=== PATIENT | female | born 1955 | race Caucasian/White ===

== ENCOUNTER → 2016-08-19 | Outpatient (CLI) | payer MEDICARE, MEDICAID | LOC: WI 07:54 | PROVIDERS: ATTEND Nurse Practitioner | DX: Z12.31 Encounter for screening mammogram for malignant neoplasm of breast (principal); M85.88 Other specified disorders of bone density and structure, other site | CPT/HCPCS: 77080; G0202; 77067 ==

== ENCOUNTER 2016-09-19 12:51 | Emergency (ER) | payer MEDICARE, MEDICAID ==
[2016-09-19] MEDS ORDERED: ACETAMINOPHEN 325 MG TABLET PO ONE (13:33)
--- NOTE | 2016-09-19 13:33 | ER Document Report ---
ED Medical Screen (RME) - General Stated Complaint: HEAD INJURY Time seen by provider: 13:29 Mode of Arrival: Ambulatory Information source: Patient Notes: 60-year-old female presents to ED for 2 knots on her head she states a roller cart fell on her head on Friday. She says she was dazed for a little bit they put ice on her head. She states that happened and Tricia Aguirre they did not send her to the hospital at the time. Timothy's support told her she needed to come to the emergency room. States she's had a headache since that happened. Denies nausea and vomiting. I have greeted and performed a rapid initial assessment of this patient. A comprehensive ED assessment and evaluation of the patient, analysis of test results and completion of medical decision making process will be conducted by an additional ED providers. TRAVEL OUTSIDE OF THE [place] IN LAST 30 DAYS: No - Related Data Allergies/Adverse Reactions: No Known Allergies Allergy (Verified 09/19/16 13:29) Past Medical History - Past Medical History Cardiac Medical History: Reports: Hx Coronary Artery Disease, Hx Hypercholesterolemia, Hx Hypertension Pulmonary Medical History: Reports: Hx Asthma, Hx Bronchitis, Hx COPD Endocrine Medical History: Reports: Hx Diabetes Mellitus Type 2 - insulin dep. Renal/ Medical History: Reports: Hx Ovarian Cysts GI Medical History: Reports: Hx Colonoscopy - Polyps removed with the last colonoscopy Musculoskeltal Medical History: Reports Hx Musculoskeletal Deformity - Osteopenia, Reports Hx Musculoskeletal Trauma Psychiatric Medical History: Reports: Hx Depression Past Surgical History: Reports: Hx Cardiac Catheterization, Hx Cardiac Surgery - stent placed 2012, Hx Coronary Stent, Hx Gynecologic Surgery - ovary and cyst removal, Hx Orthopedic Surgery - right wrist-carpal tunnel, right knee - Immunizations Hx Diphtheria, Pertussis, Tetanus Vaccination: Yes Physical Exam - Vital signs Vitals: Temp Pulse Resp BP Pulse Ox 98.2 F 79 16 126/66 H 96 09/19/16 13:00 09/19/16 13:00 09/19/16 13:00 09/19/16 13:00 09/19/16 13:00 Course - Vital Signs Vital signs: Temp Pulse Resp BP Pulse Ox 98.2 F 79 16 126/66 H 96 09/19/16 13:00 09/19/16 13:00 09/19/16 13:00 09/19/16 13:00 09/19/16 13:00
--- NOTE | 2016-09-19 14:57 | ER Document Report ---
ED General - General Chief Complaint: Head Injury Stated Complaint: HEAD INJURY Time seen by provider: 14:40 Mode of Arrival: Ambulatory Information source: Patient Notes: 60-year-old female with one-week history of cough that initially was productive but she says that got better with Mucinex. She continues however to have a nonproductive cough which sometimes becomes paroxysmal. She reports that she has had a flu shot already and saw her primary care physician Dr. Wright for this last week and had a flu test that was negative but she says other than an inhaler she did not get any other medicines for it. Patient also says that 2 days ago a roller cart fell on the right side of her head. She states the part that hit her was at about the height of her head at the time it fell and she could not provide any description about the wait involved. She says she was momentarily dazed but did not lose consciousness. She reports she had some nausea that night and some further nausea last night but doesn't feel any of that now. She complains about continued pain to the right parietal scalp and thinks she has 2 kn there but denies any vomiting, visual disturbances, pain numbness weakness to extremities, or syncope. Physical Exam: General: Alert, appears well. HEENT: Normocephalic. Palpation of the scalp shows some tenderness to the right parietal area but no ecchymosis swelling or bony defects are palpated. PERRLA. Extraocular movements intact. Discs sharp no papilledema sclerae anicteric tympanic members are canals clear otorhinorrhea Oropharynx clear. Normal Neck: Supple. Non-tender. Joints without discomfort Respiratory: No respiratory distress. Clear and equal breath sounds bilaterally. Cardiovascular: Regular rate and rhythm. Abdominal: Normal Inspection. Soft, non-tender. No distension. Normal Bowel Sounds. Back: Non-tender. No deformity or step off. Heart shows with good range of motion no discomfort to plus pulses no Homans sign bilaterally Neurological: Cranial nerves III-XII grossly intact bilaterally. Strength 5/5 throughout. Sensation intact to light touch. Normal cognition. AAOx4. Normal speech. Cerebellar function intact by finger to nose test bilaterally Psychological: Normal affect. Normal Mood. Skin: Warm. Dry. Normal color. TRAVEL OUTSIDE OF THE [place] IN LAST 30 DAYS: No - Related Data Allergies/Adverse Reactions: No Known Allergies Allergy (Verified 09/19/16 13:29) Past Medical History - General Information source: Patient - Social History Smoking Status: Current Some Day Smoker Chew tobacco use (# tins/day): No Frequency of alcohol use: None Drug Abuse: None Family History: Arthritis - RA, DM, Hyperlipidemia, Hypertension, Malignancy Patient has suicidal ideation: No Patient has homicidal ideation: No - Past Medical History Cardiac Medical History: Reports: Hx Coronary Artery Disease, Hx Hypercholesterolemia, Hx Hypertension Pulmonary Medical History: Reports: Hx Asthma, Hx Bronchitis, Hx COPD Endocrine Medical History: Reports: Hx Diabetes Mellitus Type 2 - insulin dep. Renal/ Medical History: Reports: Hx Ovarian Cysts. Denies: Hx Peritoneal Dialysis GI Medical History: Reports: Hx Colonoscopy - Polyps removed with the last colonoscopy Musculoskeltal Medical History: Reports Hx Musculoskeletal Deformity - Osteopenia, Reports Hx Musculoskeletal Trauma Psychiatric Medical History: Reports: Hx Depression Past Surgical History: Reports: Hx Cardiac Catheterization, Hx Cardiac Surgery - stent placed 2012, Hx Coronary Stent, Hx Gynecologic Surgery - ovary and cyst removal, Hx Orthopedic Surgery - right wrist-carpal tunnel, right knee - Immunizations Hx Diphtheria, Pertussis, Tetanus Vaccination: No Review of Systems - Review of Systems Constitutional: denies: Chills, Diaphoresis, Fever EENT: denies: Ear pain, Throat pain Cardiovascular: denies: Chest pain, Dyspnea Respiratory: See HPI Gastrointestinal: denies: Abdominal pain, Diarrhea Genitourinary: denies: Burning, Dysuria Female Genitourinary: denies: Musculoskeletal: denies: Back pain, Leg swelling Skin: denies: Rash Hematologic/Lymphatic: denies: Swollen glands Neurological/Psychological: denies: Weakness, Numbness Physical Exam - Vital signs Vitals: Temp Pulse Resp BP Pulse Ox 98.2 F 79 16 126/66 H 96 09/19/16 13:00 09/19/16 13:00 09/19/16 13:00 09/19/16 13:00 09/19/16 13:00 Course - Re-evaluation Re-evalutation: 09/19/16 15:00 #1 mild closed head injury. Patient does not require imaging for this and she is neurologically intact. She is reporting no nausea now. Suspect her headache is made worse with coughing and she is counseled to use symptomatic treatment with Tylenol or Motrin for that #2 cough. Lung lindsey are clear. She reports symptoms diagnosed as like this is bronchitis last year to get better with steroids and we'll prescribe a Tessalon Perle and a Medrol Dosepak follow with her primary care physician next week - Vital Signs Vital signs: Temp Pulse Resp BP Pulse Ox 98.2 F 79 16 126/66 H 96 09/19/16 13:00 09/19/16 13:00 09/19/16 13:00 09/19/16 13:00 09/19/16 13:00 Discharge - Discharge Clinical Impression: Viral syndrome Closed head injury Qualifiers: Encounter type: initial encounter Qualified Code(s): S09.90XA - Unspecified injury of head, initial encounter Condition: Stable Disposition: HOME, SELF-CARE Additional Instructions: Viral Syndrome The physician has diagnosed a viral infection. Viruses not only cause "colds," but can cause many different symptoms including generalized aching, fever, headache, cough, diarrhea, nausea, vomiting, and fatigue. The treatment, for the most part, is simply relief of symptoms. This means that antibiotics are usually not given. Rest, fluids, pain medications and, occasionally, medication for the specific symptoms that are most bothersome will be prescribed. Use good handwashing to avoid passing the virus to others. Shared toys should be cleaned with disinfectant. Clean the toilets, sinks, and counter surfaces in bathrooms. Launder clothing in hot water. Contact the physician if you develop any new or unusual symptoms such as severe headache, stiff neck, high fever, chest pain, productive cough, or shortness of breath. You should be rechecked if you don't see marked improvement within seven to 10 days. See your doctor next week to be rechecked Prescriptions: Benzonatate [Tessalon Perles 100 mg Capsule] 100 mg PO Q8HP PRN #30 capsule PRN Reason: Cough Methylprednisolone [Medrol Dosepack (4 mg/Tab) 21 Tab/Dosepak] 4 mg PO ASDIR PRN #21 tab.ds.pk PRN Reason:
[2016-09-19 15:18] VITALS: BP 141/77
== END 2016-09-19 15:17 | disposition home or self-care (01) ==
LOC: ER 12:51
DX: S09.90XA Unspecified injury of head, initial encounter (principal); R05 Cough; F17.210 Nicotine dependence, cigarettes, uncomplicated; B34.9 Viral infection, unspecified; X58.XXXA Exposure to other specified factors, initial encounter
CPT/HCPCS: 99283; A9270

== ENCOUNTER → 2016-11-07 | Outpatient (CLI) | payer MEDICARE, MEDICAID | LOC: SP 08:39 | PROVIDERS: ATTEND Family Medicine | DX: R09.89 Other specified symptoms and signs involving the circulatory and respiratory systems (principal) | CPT/HCPCS: 93880 ==

== ENCOUNTER → 2016-11-07 | Outpatient (CLI) | payer MEDICARE, MEDICAID ==
[2016-11-07 08:46] LABS: CHOLESTEROL 192.64 mg/dL (0-200); Direct HDL 79 mg/dL (>40); TRIGLYCERIDES 61 mg/dL (<150)
[2016-11-07 08:59] LABS: DIRECT LDL 84 mg/dL (<100)
== END ==
LOC: OD 07:09
PROVIDERS: ATTEND Family Medicine
DX: E11.9 Type 2 diabetes mellitus without complications (principal); R09.89 Other specified symptoms and signs involving the circulatory and respiratory systems; Z79.4 Long term (current) use of insulin
CPT/HCPCS: 36415; 80061; 83036

== ENCOUNTER 2016-12-19 07:03 | Emergency (ER) | payer MEDICARE, MEDICAID ==
[2016-12-19 07:12] VITALS: BP 110/60
--- NOTE | 2016-12-19 07:44 | ER Document Report ---
ED Wound - General Mode of Arrival: Ambulatory Information source: Patient TRAVEL OUTSIDE OF THE [place] IN LAST 30 DAYS: No - HPI Patient complains to provider of: Laceration Occurred: Just prior to arrival Onset/Duration: Sudden Context: Other - Shaving - General Chief Complaint: Laceration Stated Complaint: LEG PAIN Time Seen by Provider: 12/19/16 07:25 Notes: Patient is a 61-year-old female presenting to the emergency department after cutting her leg while shaving this morning before work. Patient states that she was "sitting in a pool of blood" and "my whole bathroom was squirted." Patient states that she put pressure on the wound with several washcloths, but it would not stop bleeding. Patient finally decided to come into the emergency department. Reports pain taking baby aspirin daily. (KATIA FRENCH) - Related Data Allergies/Adverse Reactions: No Known Allergies Allergy (Verified 09/19/16 13:29) Past Medical History - General Information source: Patient, [facility] Records - Social History Smoking Status: Current Every Day Smoker Chew tobacco use (# tins/day): No Frequency of alcohol use: None Drug Abuse: None Family History: Arthritis, DM, Hyperlipidemia, Hypertension, Malignancy Patient has suicidal ideation: No Patient has homicidal ideation: No - Past Medical History Cardiac Medical History: Reports: Hx Coronary Artery Disease, Hx Hypercholesterolemia, Hx Hypertension Pulmonary Medical History: Reports: Hx Asthma, Hx Bronchitis, Hx COPD Endocrine Medical History: Reports: Hx Diabetes Mellitus Type 2 - insulin dep. Renal/ Medical History: Reports: Hx Ovarian Cysts GI Medical History: Reports: Hx Colonoscopy - Polyps removed with the last colonoscopy Musculoskeltal Medical History: Reports Hx Musculoskeletal Deformity - Osteopenia, Reports Hx Musculoskeletal Trauma Psychiatric Medical History: Reports: Hx Depression Past Surgical History: Reports: Hx Cardiac Catheterization, Hx Cardiac Surgery - stent placed 2012, Hx Coronary Stent, Hx Gynecologic Surgery - ovary and cyst removal, Hx Orthopedic Surgery - right wrist-carpal tunnel, right knee - Immunizations Hx Diphtheria, Pertussis, Tetanus Vaccination: No Review of Systems - Review of Systems Constitutional: No symptoms reported EENT: No symptoms reported Cardiovascular: No symptoms reported Respiratory: No symptoms reported Gastrointestinal: No symptoms reported Genitourinary: No symptoms reported Female Genitourinary: No symptoms reported Musculoskeletal: No symptoms reported Skin: See HPI, Other - right leg laceration Hematologic/Lymphatic: No symptoms reported Neurological/Psychological: No symptoms reported -: Yes All other systems reviewed and negative Physical Exam - Vital signs Interpretation: Normal - General General appearance: Appears well, Alert - HEENT Head: Normocephalic, Atraumatic Eyes: Normal Pupils: PERRL - Respiratory Respiratory status: No respiratory distress Chest status: Nontender Breath sounds: Normal Chest palpation: Normal - Cardiovascular Rhythm: Regular Heart sounds: Normal auscultation Murmur: No - Abdominal Inspection: Normal Distension: No distension Bowel sounds: Normal Tenderness: Nontender Organomegaly: No organomegaly - Back Back: Normal, Nontender - Extremities General upper extremity: Normal inspection, Nontender Calf: Laceration - 2 pinpoint errosions over vericosities at the right posterior aspect mid leg, that were not bleeding at this point., Other - Vericosities, no edema. - Neurological Neuro grossly intact: Yes Cognition: Normal Orientation: AAOx4 Marco Coma Scale Eye Opening: Spontaneous [place] Coma Scale Verbal: Oriented Marco Coma Scale Motor: Obeys Commands [place] Coma Scale Total: 15 Speech: Normal - Psychological Associated symptoms: Normal affect, Normal mood - Skin Skin Temperature: Warm Skin Moisture: Dry Skin Color: Normal - Vital signs Vitals: Temp Pulse Resp BP Pulse Ox 98.2 F 69 16 110/60 94 12/19/16 07:09 12/19/16 07:09 12/19/16 07:09 12/19/16 07:09 12/19/16 07:09 Discharge - Discharge Clinical Impression: Bleeding from varicose veins of right lower extremity Additional Instructions: Change the dressing later this morning. Use Neosporin or bacitracin ointment, a very small dab over the affected area. Then place the 2X2 gauze pads over the area. Then put the Gregory wrap on. Keep your leg elevated today and limit walking. Release the Gregory wrap pressure every few hours. Be sure to keep firm pressure on the involved area anytime you are up walking. RETURN TO THE EMERGENCY ROOM IF ANY NEW OR WORSENING SYMPTOMS. Forms: Return to Work Scribe Attestation: 12/19/16 07:50 I personally performed the services described in the documentation, reviewed and edited the documentation which was dictated to the scribe in my presence, and it accurately records my words and actions. (KIRK PANDYA) Scribe Documentation - Scribe Written by Scribe:: Jono Quezada, 12/19/2016 0813 acting as scribe for :: Christian
== END 2016-12-19 07:54 | disposition home or self-care (01) ==
LOC: ER 07:03
DX: S81.811A Laceration without foreign body, right lower leg, initial encounter (principal); W45.8XXA Other foreign body or object entering through skin, initial encounter; Y93.E8 Activity, other personal hygiene; I83.91 Asymptomatic varicose veins of right lower extremity; Z79.82 Long term (current) use of aspirin; E11.9 Type 2 diabetes mellitus without complications; I25.10 Atherosclerotic heart disease of native coronary artery without angina pectoris; I10 Essential (primary) hypertension; J44.9 Chronic obstructive pulmonary disease, unspecified; Z98.61 Coronary angioplasty status; F17.200 Nicotine dependence, unspecified, uncomplicated
CPT/HCPCS: 99282

== ENCOUNTER → 2017-10-22 | Outpatient (CLI) | payer MEDICARE, MEDICAID ==
--- NOTE | 2017-10-23 16:32 | WOMENS IMAGING REPORT ---
EXAM DESCRIPTION: 3D SCREENING MAMMO BILAT COMPLETED DATE/TIME: 10/22/2017 1:57 pm REASON FOR STUDY: ROUTINE SCREENING;Z12.31 Z12.31 ENCNTR SCREEN MAMMOGRAM FOR MALIGNANT NEOPLASM OF ABRAHAM COMPARISON: 2017 TECHNIQUE: Standard craniocaudal and mediolateral oblique views of each breast recorded using digita l acquisition and breast tomosynthesis. LIMITATIONS: None. FINDINGS: No masses, calcifications or architectural distortion. No areas of suspicion. Read with the assistance of CAD. .[facility] - R2 Cenova Version 1.3 .[facility] Imaging - R2 Cenova Version 1.3 .[facility] Imaging - R2 Cenova Version 2.4 .[facility] [place] [facility] - R2 Cenova Version 2.4 .[facility] - R2 Ultrasonic Tester Version 9.2 IMPRESSION: NORMAL MAMMOGRAM. BIRADS 1. BREAST DENSITY: b. There are scattered areas of fibroglandular density. BIRAD: 1 NEGATIVE RECOMMENDATION: ROUTINE SCREENING COMMENT: The patient has been notified of the results by letter per SA requirements. Additional no tification policies are in place for contacting patient with suspicious or incomplete findings. Quality ID #225: The [employer] recommends an annual screening mammogram for women aged 40 years or over. This facility utilizes a reminder system to ensure that all patients receive reminder letters, and/or direct phone calls for appointments. This includes reminders for routine scr eening mammograms, diagnostic mammograms, or other Breast Imaging Interventions when appropriate. Th is patient will be placed in the appropriate reminder system. The [employer] (ACR) has developed recommendations for screening MRI of the breast s in certain patient populations, to be used in conjunction with mammography. Breast MRI surveillanc e may be appropriate for women with more than 20% lifetime risk of developing breast cancer as deter mined by genetic testing, significant family history of the disease, or history of mantle radiation f or Hodgkins Disease. ACR Practice Guidelines 2008. DBT Technology DBT is a type of tomographic mammography. With conventional mammography, overlapping breast tissue ma y make lesions difficult to detect, even with good compression. DBT uses an x-ray tube that rotates a round the breast, taking images at different angles. These images are then combined to create thin sl ices of the breast that the radiologist can view as a 3D reconstruction. The [facility] unit can perform full-field digital mammograms (2D imaging); or DBT (3D imaging); or both, in a combination mode that quickly performs both the mammogram and the tomosynthesis scan while the breast is still compressed. PQRS 6045F: Fluoroscopic imaging is not utilized for breast tomosynthesis. TECHNICAL DOCUMENTATION: FINDING NUMBER: (1) ASSESSMENT: (1) JOB ID: [id number] [employer]- All Rights Reserved Reading location - IP/workstation name: [email or web address]
== END ==
LOC: WI 12:58
PROVIDERS: ATTEND Nurse Practitioner
DX: Z12.31 Encounter for screening mammogram for malignant neoplasm of breast (principal)
CPT/HCPCS: 77063; 77067

== ENCOUNTER → 2017-10-24 | Outpatient (CLI) | payer MEDICARE, MEDICAID ==
[2017-10-24 08:45] LABS: HEMATOCRIT 45.4 % (36.0-47.0); HEMOGLOBIN 15.3 g/dL (12.0-15.5); MEAN CORPUSCULAR HEMOGLOBIN 30.7 pg (27.0-33.4); MEAN CORPUSCULAR HGB CONC 33.8 g/dL (32.0-36.0); MEAN CORPUSCULAR VOLUME 91 fl (80-97); PLATELET COUNT 165 10^3/uL (150-450); RED CELL DISTRIBUTION WIDTH 13.2 % (11.5-14.0); WHITE BLOOD COUNT 6.3 10^3/uL (4.0-10.5)
[2017-10-24 09:13] LABS: ALANINE AMINOTRANSFERASE 36 U/L (9-52); ALBUMIN 4.2 g/dL (3.5-5.0); ALKALINE PHOSPHATASE 95 U/L (38-126); ANION GAP 8 (5-19); ASPARTATE AMINO TRANSFERASE 21 U/L (14-36); BILIRUBIN,DIRECT 0.3 mg/dL (0.0-0.4); BILIRUBIN,TOTAL 0.5 mg/dL (0.2-1.3); BLOOD UREA NITROGEN 18 mg/dL (7-20); CALCIUM 9.4 mg/dL (8.4-10.2); CARBON DIOXIDE 31 mmol/L (22-30); CHLORIDE 103 mmol/L (98-107); GLUCOSE 126 mg/dL (75-110); POTASSIUM 4.6 mmol/L (3.6-5.0); SODIUM 141.6 mmol/L (137-145); TOTAL PROTEIN 6.4 g/dL (6.3-8.2)
[2017-10-25 06:39] LABS: HEPATITIS C VIRUS AB <0.1 s/co ratio (0.0-0.9)
== END ==
LOC: OD 07:44
PROVIDERS: ATTEND Nurse Practitioner
DX: I10 Essential (primary) hypertension (principal); I25.10 Atherosclerotic heart disease of native coronary artery without angina pectoris; I25.84 Coronary atherosclerosis due to calcified coronary lesion; E11.9 Type 2 diabetes mellitus without complications; Z79.4 Long term (current) use of insulin; Z79.899 Other long term (current) drug therapy; M89.9 Disorder of bone, unspecified; M94.9 Disorder of cartilage, unspecified; Z11.59 Encounter for screening for other viral diseases
CPT/HCPCS: 36415; 80053; 82306; 82607; 83036; 84443; 85027; 86803; 86804

== ENCOUNTER → 2017-10-26 | Outpatient (CLI) | payer MEDICARE, MEDICAID ==
--- NOTE | 2017-10-26 14:11 | RADIOLOGY REPORT (SQ) ---
EXAM DESCRIPTION: MRI HEAD WITHOUT COMPLETED DATE/TIME: 10/26/2017 8:39 am REASON FOR STUDY: UNSTEADINESS ON FEET,TINNITUS LEFT EAR R26.81 UNSTEADINESS ON FEET COMPARISON: None. TECHNIQUE: Multiplanar imaging includes non-contrasted T1, T2, FLAIR, and diffusion with ADC map seq uences. Images stored on PACS. LIMITATIONS: None. FINDINGS: ANATOMY: No anomalies. Normal vascular flow voids. Pituitary fossa normal. CSF SPACES: Normal in size and contour. No hemorrhage. CEREBRUM: Minimal spotty FLAIR hyperintensities, subtle small vessel disease suspected. No hemorrhag e or mass or shift evident. POSTERIOR FOSSA: No signal alteration. No hemorrhage. No edema, masses or mass effect. Internal curry tory canals, cerebello-pontine angles, mastoids normal. Note: Thin section high-resolution imaging of the IAC's was not performed. Such sequences can add further detail to assessment, as can post-con trast imaging. DIFFUSION IMAGING: Negative for acute or sub-acute infarction. ORBITS: No masses. Globes normal. PARANASAL SINUSES: No fluid levels. Mucosa normal. OTHER: No other significant finding. IMPRESSION: 1. Fairly unremarkable MRI of the brain. Suspect minimal small vessel disease. EVIDENCE OF ACUTE STROKE: NO. TECHNICAL DOCUMENTATION: JOB ID: [id number] [employer]- All Rights Reserved Reading location - IP/workstation name: [email or web address]
== END ==
LOC: RAD 07:40
PROVIDERS: ATTEND Nurse Practitioner
DX: H93.12 Tinnitus, left ear (principal); R26.81 Unsteadiness on feet
CPT/HCPCS: 70551

== ENCOUNTER → 2018-02-23 | Outpatient (CLI) | payer MEDICARE, MEDICAID ==
[2018-02-23 12:09] LABS: URIC ACID 3.3 mg/dL (2.5-7.5)
[2018-02-23 12:15] LABS: C-REACTIVE PROTEIN < 5.0 mg/L (<10.0)
[2018-02-25 18:01] LABS: CYCLIC CITRUL PEPTIDE IGG/A AB 4 units (0-19)
== END ==
LOC: OD 09:26
PROVIDERS: ATTEND Orthopaedic Surgery
DX: M65.331 Trigger finger, right middle finger (principal); M25.9 Joint disorder, unspecified
CPT/HCPCS: 36415; 84550; 85652; 86038; 86140; 86200; 86430

== ENCOUNTER → 2018-08-07 | Outpatient (CLI) | payer MEDICARE, MEDICAID ==
--- NOTE | 2018-08-07 15:57 | RADIOLOGY REPORT (SQ) ---
EXAM DESCRIPTION: CT ABD/PELVIS COMBO COMPLETED DATE/TIME: 08/07/2018 3:36 pm REASON FOR STUDY: R31.9 HEMATURIA, UNSPECIFIED R31.9 HEMATURIA, UNSPECIFIED COMPARISON: None. TECHNIQUE: CT scan of the abdomen and pelvis performed with and without intravenous contrast, and wi thout oral contrast. Contrasted imaging performed helical scanning technique and dynamic intravenous contrast injection. Images reviewed with lung, soft tissue, and bone windows. Reconstructed coronal a nd sagittal MPR images reviewed. Delayed images for evaluation of the urinary system also acquired. A ll images stored on PACS. All CT scanners at this facility use dose modulation, iterative reconstruction, and/or weight based d osing when appropriate to reduce radiation dose to as low as reasonably achievable (ALARA). [facility]: Dose Right [facility]: CareDose [facility]: Dose Right [facility]: Teradose 4D [facility]: [employer] CONTRAST TYPE AND DOSE: contrast/concentration: Isovue 350.00 mg/ml; Total Contrast Delivered: 67.0 ml; Total Saline Delivered: 65.0 ml RENAL FUNCTION: Creatinine 0.8 RADIATION DOSE: CT Rad equipment meets quality standard of care and radiation dose reduction techniq ues were employed. CTDIvol: 9.0 mGy. DLP: 1337 mGy-cm. . LIMITATIONS: None. FINDINGS: NON-CONTRASTED IMAGING: A couple prominent nonobstructing intrarenal calculi are seen in t he left kidney. Some tiny nonobstructing intrarenal calculi are present on the right. No ureteral c alculus is appreciated. POST-CONTRASTED IMAGING: LOWER CHEST: Centrilobular emphysematous changes are present. No infiltrate or effusion is seen. LIVER: Normal size. No masses. No dilated ducts. SPLEEN: Normal size. No focal lesions. PANCREAS: No masses. No significant calcifications. No adjacent inflammation or peripancreatic fluid collections. Pancreatic duct not dilated. GALLBLADDER: No identified stones by CT criteria. No inflammatory changes to suggest cholecystitis. ADRENAL GLANDS: No significant masses or asymmetry. RIGHT KIDNEY AND URETER: No solid masses. There are some tiny nonobstructing intrarenal calculi. No hydronephrosis or hydroureter. LEFT KIDNEY AND URETER: No solid masses. Nonobstructing intrarenal calculi including a 10 mm lower calyceal stone. No hydronephrosis or hydroureter. AORTA AND VESSELS: No aneurysm. No dissection. Renal arteries, SMA, celiac without stenosis. RETROPERITONEUM: No retroperitoneal adenopathy, hemorrhage or masses. BOWEL AND PERITONEAL CAVITY: No masses or inflammatory changes. No free fluid or peritoneal masses. APPENDIX: Not identified. PELVIS: No mass. No free fluid. Normal bladder. ABDOMINAL WALL: No masses. No hernias. BONES: Degenerative joint changes in the left hip. OTHER: No other significant finding. IMPRESSION: 1. Nonobstructing intrarenal calculi. No ureteral stone or obstruction. 2. There are no acute findings in the abdomen or pelvis. 3. Degenerative joint changes in the left hip. TECHNICAL DOCUMENTATION: JOB ID: [id number] Quality ID # [id number]: Final reports with documentation of one or more dose reduction techniques (e.g., Au tomated exposure control, adjustment of the mA and/or kV according to patient size, use of iterative reconstruction technique) 2010 [employer]- All Rights Reserved Reading location - IP/workstation name: [email or web address]
== END ==
LOC: RAD 15:54
PROVIDERS: ATTEND Urology
DX: N20.0 Calculus of kidney (principal); R31.9 Hematuria, unspecified
CPT/HCPCS: 74178; 82565

== ENCOUNTER 2018-08-17 07:59 | Emergency (ER) | payer MEDICARE, MEDICAID ==
[2018-08-17 09:19] LABS: ABSOLUTE EOSINOPHILS # (AUTO) 0.2 10^3/uL (0.0-0.6); ABSOLUTE MONOCYTES (AUTO) 0.4 10^3/uL (0.1-1.4); ABSOLUTE NEUT (AUTO) 3.9 10^3/uL (1.7-8.2); BASOPHILS % (AUTO) 0.6 % (0-2); EOSINOPHILS % (AUTO) 3.5 % (0-6); HEMOGLOBIN 14.6 g/dL (12.0-15.5); LYMPHOCYTES % (AUTO) 18.4 % (13-45); MEAN CORPUSCULAR HEMOGLOBIN 30.7 pg (27.0-33.4); MEAN CORPUSCULAR VOLUME 90 fl (80-97); MONOCYTES % (AUTO) 7.7 % (3-13); PLATELET COUNT 142 10^3/uL (150-450); RED BLOOD COUNT 4.77 10^6/uL (3.72-5.28); RED CELL DISTRIBUTION WIDTH 12.7 % (11.5-14.0); SEGMENTED NEUTROPHILS % (AUTO) 69.8 % (42-78); TOTAL CELLS COUNTED % (AUTO) 100 %; WHITE BLOOD COUNT 5.5 10^3/uL (4.0-10.5)
[2018-08-17 09:38] LABS: APPEARANCE,URINE SLIGHTLY-CLOUDY; BILIRUBIN,URINE NEGATIVE (NEGATIVE); COLOR,URINE YELLOW; GLUCOSE, URINE >=500 mg/dL (NEGATIVE); KETONES,URINE NEGATIVE (NEGATIVE); LEUKOCYTE ESTERASE,URINE NEGATIVE (NEGATIVE); NITRITE,URINE NEGATIVE (NEGATIVE); PROTEIN,URINE NEGATIVE (NEGATIVE); URINE SPECIFIC GRAVITY 1.014; UROBILINOGEN,URINE NEGATIVE mg/dL (<2.0)
[2018-08-17 09:38] LABS: ALANINE AMINOTRANSFERASE 19 U/L (9-52); ALBUMIN 3.8 g/dL (3.5-5.0); ALKALINE PHOSPHATASE 92 U/L (38-126); ANION GAP 6 (5-19); ASPARTATE AMINO TRANSFERASE 20 U/L (14-36); BILIRUBIN,DIRECT 0.2 mg/dL (0.0-0.4); BILIRUBIN,TOTAL 0.5 mg/dL (0.2-1.3); BLOOD UREA NITROGEN 17 mg/dL (7-20); CALCIUM 8.9 mg/dL (8.4-10.2); CARBON DIOXIDE 29 mmol/L (22-30); CHLORIDE 107 mmol/L (98-107); GLUCOSE 161 mg/dL (75-110); POTASSIUM 4.2 mmol/L (3.6-5.0)
--- NOTE | 2018-08-17 10:02 | RADIOLOGY REPORT (SQ) ---
EXAM DESCRIPTION: CT HEAD WITHOUT COMPLETED DATE/TIME: 08/17/2018 9:52 am REASON FOR STUDY: dizziness, HTN, headache COMPARISON: None. TECHNIQUE: Axial images acquired through the brain without intravenous contrast. Images reviewed wi th bone, brain and subdural windows. Additional sagittal and coronal reconstructions were generated. Images stored on PACS. All CT scanners at this facility use dose modulation, iterative reconstruction, and/or weight based d osing when appropriate to reduce radiation dose to as low as reasonably achievable (ALARA). [facility]: Dose Right [facility]: CareDose [facility]: Dose Right [facility]: Teradose 4D [facility]: [employer] RADIATION DOSE: CT Rad equipment meets quality standard of care and radiation dose reduction techniq ues were employed. CTDIvol: 53.2 mGy. DLP: 1124 mGy-cm. mGy. LIMITATIONS: None. FINDINGS: VENTRICLES: Normal size and contour. CEREBRUM: No masses. No hemorrhage. No midline shift. No evidence for acute infarction. Normal gra y/white matter differentiation. No areas of low density in the white matter. CEREBELLUM: No masses. No hemorrhage. No alteration of density. No evidence for acute infarction. EXTRAAXIAL SPACES: No fluid collections. No masses. ORBITS AND GLOBE: No intra- or extraconal masses. Normal contour of globe without masses. CALVARIUM: No fracture. PARANASAL SINUSES: No fluid or mucosal thickening. SOFT TISSUES: No mass or hematoma. OTHER: No other significant finding. IMPRESSION: No acute intracranial pathology. No noncontrast CT findings to explain headaches or diz ziness. EVIDENCE OF ACUTE STROKE: NO. COMMENT: Quality ID # 436: Final reports with documentation of one or more dose reduction techniques (e.g., Automated exposure control, adjustment of the mA and/or kV according to patient size, use of iterative reconstruction technique) TECHNICAL DOCUMENTATION: JOB ID: [id number] [employer]- All Rights Reserved Reading location - IP/workstation name: [email or web address]
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
--- NOTE | 2018-08-17 11:25 | RADIOLOGY REPORT (SQ) ---
EXAM DESCRIPTION: CHEST 2 VIEWS COMPLETED DATE/TIME: 08/17/2018 11:15 am REASON FOR STUDY: cp COMPARISON: None. EXAM PARAMETERS: NUMBER OF VIEWS: two views TECHNIQUE: Digital Frontal and Lateral radiographic views of the chest acquired. RADIATION DOSE: NA LIMITATIONS: none FINDINGS: LUNGS AND PLEURA: Mild hyperinflation of the lungs and flattening of the diaphragms. Pro minence of the interstitial markings in the lungs may be on a chronic basis. No acute pulmonary cons olidation. No pneumothorax or pleural effusion. MEDIASTINUM AND HILAR STRUCTURES: No masses or contour abnormalities. HEART AND VASCULAR STRUCTURES: Heart normal size. No evidence for failure. BONES: No acute findings. HARDWARE: None in the chest. OTHER: No other significant finding. IMPRESSION: 1. Mild prominence of the interstitial markings in the lungs may be on a chronic basis. Findings suggest COPD. No acute findings. TECHNICAL DOCUMENTATION: JOB ID: [id number] [employer]- All Rights Reserved Reading location - IP/workstation name: [email or web address]
[2018-08-17 12:07] VITALS: BP 167/85
--- NOTE | 2018-08-17 23:19 | EKG REPORT ---
SEVERITY:- BORDERLINE ECG - SINUS RHYTHM LEFT AXIS DEVIATION BORDERLINE R WAVE PROGRESSION, ANTERIOR LEADS : Confirmed by: Nimo Montelongo MD 17-Aug-2018 23:18:36
== END 2018-08-17 12:30 | disposition home or self-care (01) ==
LOC: ER 07:59
DX: R42 Dizziness and giddiness (principal); I10 Essential (primary) hypertension; R51 Headache; R07.9 Chest pain, unspecified; E11.9 Type 2 diabetes mellitus without complications; I25.10 Atherosclerotic heart disease of native coronary artery without angina pectoris; Z79.4 Long term (current) use of insulin; Z79.899 Other long term (current) drug therapy; J44.9 Chronic obstructive pulmonary disease, unspecified
CPT/HCPCS: 36415; 70450; 71046; 80053; 81001; 84484; 85025; 93005; 93010; 99284

== ENCOUNTER → 2018-10-02 | Outpatient (CLI) | payer MEDICARE, MEDICAID ==
[2018-10-02 10:04] LABS: HEMATOCRIT 45.4 % (36.0-47.0); HEMOGLOBIN 15.6 g/dL (12.0-15.5); MEAN CORPUSCULAR HEMOGLOBIN 30.8 pg (27.0-33.4); MEAN CORPUSCULAR HGB CONC 34.5 g/dL (32.0-36.0); MEAN CORPUSCULAR VOLUME 89 fl (80-97); PLATELET COUNT 170 10^3/uL (150-450); RED BLOOD COUNT 5.07 10^6/uL (3.72-5.28); RED CELL DISTRIBUTION WIDTH 12.6 % (11.5-14.0); WHITE BLOOD COUNT 6.7 10^3/uL (4.0-10.5)
[2018-10-02 10:28] LABS: ALANINE AMINOTRANSFERASE 29 U/L (9-52); ALBUMIN 3.5 g/dL (3.5-5.0); ALKALINE PHOSPHATASE 107 U/L (38-126); ASPARTATE AMINO TRANSFERASE 20 U/L (14-36); BILIRUBIN,DIRECT 0.2 mg/dL (0.0-0.4); BILIRUBIN,TOTAL 0.5 mg/dL (0.2-1.3); BLOOD UREA NITROGEN 22 mg/dL (7-20); CALCIUM 9.3 mg/dL (8.4-10.2); CHOLESTEROL 156.27 mg/dL (0-200); CREATINE KINASE 56 U/L (30-135); GLUCOSE 180 mg/dL (75-110); POTASSIUM 4.9 mmol/L (3.6-5.0); TOTAL PROTEIN 6.1 g/dL (6.3-8.2); TRIGLYCERIDES 59 mg/dL (<150)
[2018-10-02 10:34] LABS: CARBON DIOXIDE 34 mmol/L (22-30); CHLORIDE 101 mmol/L (98-107); SODIUM 137.5 mmol/L (137-145)
[2018-10-02 10:39] LABS: DIRECT LDL 86 mg/dL (<100)
[2018-10-02 10:40] LABS: ANION GAP 3 (5-19)
== END ==
LOC: OD 09:00
PROVIDERS: ATTEND Obstetrics & Gynecology
DX: E11.9 Type 2 diabetes mellitus without complications (principal); Z79.4 Long term (current) use of insulin; E78.5 Hyperlipidemia, unspecified
CPT/HCPCS: 36415; 80053; 80061; 82550; 83036; 84443; 85027

== ENCOUNTER 2018-11-05 10:14 | Emergency (ER) | payer OTHER, MEDICARE ==
[2018-11-05] MEDS ORDERED: ACETAMINOPHEN 325 MG TABLET PO ONE (10:38)
[2018-11-05] MEDS ORDERED: LIDOCAINE 5% (700 MG) TRANSDERMAL ADH..PATCH TP ONE (10:38)
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
[2018-11-05 12:30] VITALS: BP 111/72
== END 2018-11-05 12:22 | disposition home or self-care (01) ==
LOC: ER 10:14
DX: M54.5 Low back pain (principal); R51 Headache; V43.52XA Car driver injured in collision with other type car in traffic accident, initial encounter; F17.200 Nicotine dependence, unspecified, uncomplicated; M50.823 Other cervical disc disorders at C6-C7 level; I25.10 Atherosclerotic heart disease of native coronary artery without angina pectoris; I10 Essential (primary) hypertension; J44.9 Chronic obstructive pulmonary disease, unspecified; E11.9 Type 2 diabetes mellitus without complications; Z95.5 Presence of coronary angioplasty implant and graft
CPT/HCPCS: 70450; 72070; 72110; 72125; 99284

== ENCOUNTER → 2019-01-27 | Outpatient (CLI) | payer MEDICARE | LOC: OD 09:32 | PROVIDERS: ATTEND Obstetrics & Gynecology | DX: E27.8 Other specified disorders of adrenal gland (principal) | CPT/HCPCS: 36415; 82533; 82627 ==

== ENCOUNTER 2019-04-05 08:52 | Emergency (ER) | payer MEDICARE, MEDICAID ==
[2019-04-05 09:01] VITALS: BP 104/57
--- NOTE | 2019-04-05 09:48 | ER Document Report ---
ED Medical Screen (RME) - General Chief Complaint: Chest Pain Stated Complaint: COLD SYMPTOMS Time Seen by Provider: 04/05/19 09:35 Primary Care Provider: MARTY ARROYO MD [Primary Care Provider] - Follow up as needed Notes: Provider entered room finding patient laying on the floor with her head resting in a chair. Patient initially very resistant to explain what had brought her to the emergency department today. After much coaxing patient does state that she is here because she received a flu shot 3 days ago and since has had sore throat, congestion, and fatigue. Patient states since her arrival to the room she has since developed chest pain. I have greeted and performed a rapid initial assessment of this patient. A comprehensive ED assessment and evaluation of the patient, analysis of test results and completion of the medical decision making process will be conducted by additional ED providers. TRAVEL OUTSIDE OF THE [place] IN LAST 30 DAYS: No - Related Data Allergies/Adverse Reactions: No Known Allergies Allergy (Verified 04/05/19 08:58) Past Medical History - Social History Chew tobacco use (# tins/day): No Frequency of alcohol use: None Drug Abuse: None - Past Medical History Cardiac Medical History: Reports: Hx Coronary Artery Disease, Hx Hypercholesterolemia, Hx Hypertension Pulmonary Medical History: Reports: Hx Asthma, Hx Bronchitis, Hx COPD Endocrine Medical History: Reports: Hx Diabetes Mellitus Type 1, Hx Diabetes Mellitus Type 2 - insulin dep. Renal/ Medical History: Reports: Hx Ovarian Cysts. Denies: Hx Peritoneal Dialysis GI Medical History: Reports: Hx Colonoscopy - Polyps removed with the last colonoscopy Musculoskeltal Medical History: Reports Hx Musculoskeletal Deformity - Osteopenia, Reports Hx Musculoskeletal Trauma Psychiatric Medical History: Reports: Hx Depression Past Surgical History: Reports: Hx Cardiac Catheterization, Hx Cardiac Surgery - stent placed 2012, Hx Coronary Stent, Hx Gynecologic Surgery - ovary and cyst removal, Hx Orthopedic Surgery - right wrist-carpal tunnel, right knee - Immunizations Hx Diphtheria, Pertussis, Tetanus Vaccination: No Physical Exam - Vital signs Vitals: Temp Pulse Resp BP Pulse Ox 98.1 F 75 18 104/57 L 100 04/05/19 08:58 04/05/19 08:58 04/05/19 08:58 04/05/19 08:58 04/05/19 08:58 - General General appearance: Alert Notes: Appears to feel bad, respirations unlabored, patient very closed during the interview refusing to answer questions stating that the staff at the desk got all the information that we needed - Respiratory Respiratory status: No respiratory distress Course - Re-evaluation Re-evalutation: 04/05/19 09:47 PCT was ambulating patient to a different room given the increased acuity based on her chest pain complaint in the setting of fatigue with a history of dyslipidemia and diabetes. Patient told staff that she did not like the provider and that she was leaving. Patient seen ambulating out of the department. - Vital Signs Vital signs: Temp Pulse Resp BP Pulse Ox 98.1 F 75 18 104/57 L 100 04/05/19 08:58 04/05/19 08:58 04/05/19 08:58 04/05/19 08:58 04/05/19 08:58 Doctor's Discharge - Discharge Referrals: MARTY ARROYO MD [Primary Care Provider] - Follow up as needed
== END 2019-04-05 09:49 | disposition left against medical advice (07) ==
LOC: ER 08:52
DX: R07.9 Chest pain, unspecified (principal); I25.10 Atherosclerotic heart disease of native coronary artery without angina pectoris; E78.00 Pure hypercholesterolemia, unspecified; I10 Essential (primary) hypertension
CPT/HCPCS: 87070; 87880; 99283

== ENCOUNTER 2019-04-05 10:10 | Emergency (ER) | payer MEDICARE, MEDICAID ==
--- NOTE | 2019-04-05 10:35 | ER Document Report ---
ED Medical Screen (RME) - General Chief Complaint: Cold Symptoms Stated Complaint: COLD SYMPTOMS Time Seen by Provider: 04/05/19 10:31 Primary Care Provider: MARTY ARROYO MD [Primary Care Provider] - Follow up as needed TRAVEL OUTSIDE OF THE [place] IN LAST 30 DAYS: No - HPI Notes: 04/05/19 10:33 Patient is a 58-year-old male with a history of hypertension and type 2 diabetes who presents for the second time this morning after leaving because she was upset complaining of nasal congestion/discharge, dry cough, sore throat, body ache that began this past weekend. Patient states that she does have chest soreness only with a cough which does not bother her otherwise. She is able to ambulate without any shortness of breath or dyspnea on exertion. I have treated and performed a rapid initial assessment of this patient. A comprehensive ED assessment and evaluation of the patient, analysis of test results and completion of medical decision making process will be conducted by additional ED providers. PHYSICAL EXAMINATION: GENERAL: Well-appearing, well-nourished and in no acute distress. A&Ox4. Answers questions appropriately. - Related Data Allergies/Adverse Reactions: No Known Allergies Allergy (Verified 04/05/19 08:58) Past Medical History - Past Medical History Cardiac Medical History: Reports: Hx Coronary Artery Disease, Hx Hypercholesterolemia, Hx Hypertension Pulmonary Medical History: Reports: Hx Asthma, Hx Bronchitis, Hx COPD Endocrine Medical History: Reports: Hx Diabetes Mellitus Type 1, Hx Diabetes Mellitus Type 2 - insulin dep. Renal/ Medical History: Reports: Hx Ovarian Cysts. Denies: Hx Peritoneal Dialysis GI Medical History: Reports: Hx Colonoscopy - Polyps removed with the last colonoscopy Musculoskeltal Medical History: Reports Hx Musculoskeletal Deformity - Osteopenia, Reports Hx Musculoskeletal Trauma Psychiatric Medical History: Reports: Hx Depression Past Surgical History: Reports: Hx Cardiac Catheterization, Hx Cardiac Surgery - stent placed 2012, Hx Coronary Stent, Hx Gynecologic Surgery - ovary and cyst removal, Hx Orthopedic Surgery - right wrist-carpal tunnel, right knee - Immunizations Hx Diphtheria, Pertussis, Tetanus Vaccination: No Physical Exam - Vital signs Vitals: Temp Pulse Resp BP Pulse Ox 98.1 F 69 20 112/65 96 04/05/19 10:15 04/05/19 10:15 04/05/19 10:15 04/05/19 10:15 04/05/19 10:15 Course - Vital Signs Vital signs: Temp Pulse Resp BP Pulse Ox 98.1 F 69 20 112/65 96 04/05/19 10:15 04/05/19 10:15 04/05/19 10:15 04/05/19 10:15 04/05/19 10:15 Doctor's Discharge - Discharge Referrals: MARTY ARROYO MD [Primary Care Provider] - Follow up as needed
--- NOTE | 2019-04-05 11:22 | RADIOLOGY REPORT (SQ) ---
EXAM DESCRIPTION: CHEST 2 VIEWS COMPLETED DATE/TIME: 04/05/2019 11:03 am REASON FOR STUDY: cough COMPARISON: Two-view chest 08/17/2018 EXAM PARAMETERS: NUMBER OF VIEWS: two views TECHNIQUE: Digital Frontal and Lateral radiographic views of the chest acquired. RADIATION DOSE: NA LIMITATIONS: none FINDINGS: LUNGS AND PLEURA: Lungs are hyperinflated and hyperlucent but clear. No pleural effusion. No pneumothorax. MEDIASTINUM AND HILAR STRUCTURES: No masses or contour abnormalities. HEART AND VASCULAR STRUCTURES: Heart normal size. No evidence for failure. BONES: No acute findings. HARDWARE: None in the chest. OTHER: No other significant finding. IMPRESSION: Hyperinflation. No acute infiltrates TECHNICAL DOCUMENTATION: JOB ID: [id number] [employer]- All Rights Reserved Reading location - IP/workstation name: [email or web address]
[2019-04-05] MEDS ORDERED: ALBUTEROL SULFATE HFA (90 MCG/PUFF) 8 GM MDI (1 MDI/ER DISP) IH ONE (11:37)
[2019-04-05 11:50] VITALS: BP 122/76
--- NOTE | 2019-04-05 19:21 | ER Document Report ---
HPI - HPI Patient complains to provider of: cough Time Seen by Provider: 04/05/19 10:31 Pain Level: 5 Context: 63-year-old female with hypertension and diabetes presents to the emergency department with chief complaint of cough and upper respiratory congestion that started over the weekend. Patient states that she has occasionally produce some phlegm but denies any acute shortness of breath or wheezing. Denies fevers or chills, denies vision changes, denies nausea or vomiting, denies any ear pain or sinus pressure. No other complaints. - REPRODUCTIVE Reproductive: DENIES: : Past Medical History - Social History Smoking Status: Current Every Day Smoker Chew tobacco use (# tins/day): No Family History: Arthritis, DM, Hyperlipidemia, Hypertension, Malignancy Patient has suicidal ideation: No Patient has homicidal ideation: No - Past Medical History Cardiac Medical History: Reports: Hx Coronary Artery Disease, Hx Hypercholesterolemia, Hx Hypertension Pulmonary Medical History: Reports: Hx Asthma, Hx Bronchitis, Hx COPD Endocrine Medical History: Reports: Hx Diabetes Mellitus Type 1, Hx Diabetes Mellitus Type 2 - insulin dep. Renal/ Medical History: Reports: Hx Ovarian Cysts. Denies: Hx Peritoneal Dialysis GI Medical History: Reports: Hx Colonoscopy - Polyps removed with the last colonoscopy Musculoskeletal Medical History: Reports Hx Musculoskeletal Deformity - Osteopenia, Reports Hx Musculoskeletal Trauma Psychiatric Medical History: Reports: Hx Depression Past Surgical History: Reports: Hx Cardiac Catheterization, Hx Cardiac Surgery - stent placed 2012, Hx Coronary Stent, Hx Gynecologic Surgery - ovary and cyst removal, Hx Orthopedic Surgery - right wrist-carpal tunnel, right knee - Immunizations Hx Diphtheria, Pertussis, Tetanus Vaccination: No Vertical Provider Document - CONSTITUTIONAL Notes: PHYSICAL EXAMINATION: Reviewed vital signs and charting by RN GENERAL: Alert, interacts well. No acute distress. HEAD: Normocephalic, atraumatic. EYES: Pupils equal and round. Extraocular movements intact. ENT: Oral mucosa moist, tongue midline. NECK: Full range of motion. Trachea midline. LUNGS: Clear to auscultation bilaterally, no wheezes, rales, or rhonchi. No respiratory distress. HEART: Regular rate and rhythm. No murmur ABDOMEN: soft, non-tender. No distention. Bowel sounds present EXTREMITIES: Moves all 4 extremities spontaneously. No edema, No cyanosis. PSYCH: Normal affect, normal mood. SKIN: Warm, dry, normal turgor. No rashes or lesions noted. - INFECTION CONTROL TRAVEL OUTSIDE OF THE [place] IN LAST 30 DAYS: No Course - Re-evaluation Re-evalutation: 04/05/19 19:22 Presentation is most consistent with a viral upper respiratory infection. Patient is overall well appearance, vitals within normal limits, well-hydrated. Patient denies any headache, neck pain, and has no evidence of meningismus on examination. Lungs are clear bilaterally. No evidence of respiratory distress. Based on clinical exam and history, I do not suspect an acute pneumonia, meningitis, strep pharyngitis, or an acute encephalitis. No laboratory or imaging testing is indicated at this time. Will discharge patient with return precautions and followup recommendations. They are in agreement this plan have verbalized understanding return precautions. - Vital Signs Vital signs: Temp Pulse Resp BP Pulse Ox 98.1 F 69 20 112/65 96 04/05/19 10:15 04/05/19 10:15 04/05/19 10:15 04/05/19 10:15 04/05/19 10:15 Discharge - Discharge Clinical Impression: Cough, Congestion of throat Condition: Good Disposition: HOME, SELF-CARE Additional Instructions: You have been seen and treated in the emergency department for an upper respiratory infection. Your chest x-ray did not show any evidence of pneumonia or any inflammatory signs that could indicate bronchitis. These are typically caused by viruses and do not respond to antibiotics. Please make sure you using any prescription medications as prescribed. Please also continue to take [id number] Tylenol and Motrin for your generalized body aches, fever. Please stay well-hydrated and get plenty of rest. Please follow-up with your primary care provider in the next 24 to 48 hours. Please return to the emergency room should you have any other concerning symptoms. Referrals: MARTY ARROYO MD [Primary Care Provider] - Follow up as needed
== END 2019-04-05 11:50 | disposition home or self-care (01) ==
LOC: ER 10:10
DX: R05 Cough (principal); R68.89 Other general symptoms and signs; F17.200 Nicotine dependence, unspecified, uncomplicated; I25.10 Atherosclerotic heart disease of native coronary artery without angina pectoris; E78.00 Pure hypercholesterolemia, unspecified; I10 Essential (primary) hypertension; Z79.4 Long term (current) use of insulin
CPT/HCPCS: 71046; J3490; 99283

== ENCOUNTER → 2019-04-05 | Outpatient (CLI) | payer MEDICARE, MEDICAID ==
--- NOTE | 2019-04-05 14:06 | RADIOLOGY REPORT (SQ) ---
EXAM DESCRIPTION: CAROTID DOPPLER COMPLETED DATE/TIME: 04/05/2019 1:43 pm REASON FOR STUDY: DIZZINESS R42 DIZZINESS AND GIDDINESS COMPARISON: None. TECHNIQUE: Grayscale ultrasound, Doppler velocity and spectra, and color Doppler images acquired of the extra-cranial carotid and vertebral arteries. Images stored on PACS. LIMITATIONS: None. FINDINGS: RIGHT CAROTID CCA Velocities: Within normal limits. ICA Velocities Peak systolic 139 cm/s. End diastolic 44 cm/s. Proximal ICA/CCA peak systolic ratio 2.01. Non-shadowing plaque identified in the proximal right ICA. LEFT CAROTID CCA Velocities: Within normal limits. ICA Velocities Peak systolic 127 cm/s. End diastolic 28 cm/s. Proximal ICA/CCA peak systolic ratio 1.90. Non-shadowing plaque identified in the proximal left ICA. VERTEBRAL ARTERIES: Antegrade flow. Normal waveforms. SUBCLAVIAN ARTERIES: No finding. OTHER: No other significant finding. IMPRESSION: 1. Non-shadowing plaque identified in the proximal right and left ICA(50- 69% degree of stenosis bilaterally). RECOMMENDATION: . COMMENT: Quality ID #[id number]: Velocity criteria are extrapolated from the diameter data as defined by t he Society of Radiologists in Ultrasound Consensus Conference. Radiology 2003: 229; 340-346. TECHNICAL DOCUMENTATION: JOB ID: [id number] [employer]- All Rights Reserved Reading location - IP/workstation name: [email or web address]
== END ==
LOC: SP 12:40
PROVIDERS: ATTEND Obstetrics & Gynecology
DX: I65.23 Occlusion and stenosis of bilateral carotid arteries (principal); R42 Dizziness and giddiness; R55 Syncope and collapse; E11.9 Type 2 diabetes mellitus without complications; Z79.4 Long term (current) use of insulin
CPT/HCPCS: 93880

== ENCOUNTER 2019-07-01 08:45 | Emergency (ER) | payer MEDICARE, MEDICAID ==
--- NOTE | 2019-07-01 10:43 | ER Document Report ---
ED Medical Screen (RME) - General Chief Complaint: High Blood Sugar Stated Complaint: POSSIBLE ANXIETY Time Seen by Provider: 07/01/19 10:39 Primary Care Provider: MARTY ARROYO MD [Primary Care Provider] - Follow up as needed Mode of Arrival: Ambulatory Information source: Patient Notes: This 63-year-old female presents emergency department with reports she is a flynn betic and her sugars been over 500 for the past 2 days. She reports she is usually under 100 in the morning. She reports she has had a slight cough but she has history of COPD. She also reports she still smoking. Denies fever vomiting diarrhea. Denies urinary frequency. Reports she is really been pushing the fluids on purpose. I have greeted and performed a rapid initial assessment of this patient. A comprehensive ED assessment and evaluation of the patient, analysis of test results and completion of the medical decision making process will be conducted by additional ED providers. TRAVEL OUTSIDE OF THE [place] IN LAST 30 DAYS: No - Related Data Allergies/Adverse Reactions: No Known Allergies Allergy (Verified 04/05/19 08:58) Past Medical History - Past Medical History Cardiac Medical History: Reports: Hx Coronary Artery Disease, Hx Hypercholes terolemia, Hx Hypertension Pulmonary Medical History: Reports: Hx Asthma, Hx Bronchitis, Hx COPD Endocrine Medical History: Reports: Hx Diabetes Mellitus Type 1, Hx Diabetes Mellitus Type 2 - insulin dep. Renal/ Medical History: Reports: Hx Ovarian Cysts. Denies: Hx Peritoneal Dialysis GI Medical History: Reports: Hx Colonoscopy - Polyps removed with the last colonoscopy Musculoskeltal Medical History: Reports Hx Musculoskeletal Deformity - Osteopenia, Reports Hx Musculoskeletal Trauma Psychiatric Medical History: Reports: Hx Depression Past Surgical History: Reports: Hx Cardiac Catheterization, Hx Cardiac Surgery - stent placed 2012, Hx Coronary Stent, Hx Gynecologic Surgery - ovary and cyst removal, Hx Orthopedic Surgery - right wrist-carpal tunnel, right knee - Immunizations Hx Diphtheria, Pertussis, Tetanus Vaccination: No Physical Exam - Vital signs Vitals: Temp Pulse Resp BP Pulse Ox 98.6 F 83 16 138/70 H 96 07/01/19 09:13 07/01/19 09:13 07/01/19 09:13 07/01/19 09:13 07/01/19 09:13 Course - Vital Signs Vital signs: Temp Pulse Resp BP Pulse Ox 98.6 F 83 16 138/70 H 96 07/01/19 09:13 07/01/19 09:13 07/01/19 09:13 07/01/19 09:13 07/01/19 09:13 Doctor's Discharge - Discharge Referrals: MARTY ARROYO MD [Primary Care Provider] - Follow up as needed
--- NOTE | 2019-07-01 11:38 | RADIOLOGY REPORT (SQ) ---
EXAM DESCRIPTION: CHEST 2 VIEWS COMPLETED DATE/TIME: 07/01/2019 11:28 am REASON FOR STUDY: cough hx copd COMPARISON: None. EXAM PARAMETERS: NUMBER OF VIEWS: two views TECHNIQUE: Digital Frontal and Lateral radiographic views of the chest acquired. RADIATION DOSE: NA LIMITATIONS: none FINDINGS: LUNGS AND PLEURA: Hyperinflation. No focal consolidation, pleural effusion or pneumothora x. MEDIASTINUM AND HILAR STRUCTURES: No masses or contour abnormalities. HEART AND VASCULAR STRUCTURES: Heart normal size. No evidence for failure. BONES: No acute findings. HARDWARE: None in the chest. OTHER: No other significant finding. IMPRESSION: Hyperinflation. No other evidence of acute cardiopulmonary process. TECHNICAL DOCUMENTATION: JOB ID: [id number] [employer]- All Rights Reserved Reading location - IP/workstation name: [email or web address]
[2019-07-01 12:07] LABS: APPEARANCE,URINE SLIGHTLY-CLOUDY; BILIRUBIN,URINE NEGATIVE (NEGATIVE); COLOR,URINE YELLOW; GLUCOSE, URINE >=500 mg/dL (NEGATIVE); KETONES,URINE TRACE mg/dL (NEGATIVE); LEUKOCYTE ESTERASE,URINE NEGATIVE (NEGATIVE); NITRITE,URINE NEGATIVE (NEGATIVE); PROTEIN,URINE NEGATIVE (NEGATIVE); UROBILINOGEN,URINE NEGATIVE mg/dL (<2.0)
[2019-07-01 12:26] LABS: ABSOLUTE EOSINOPHILS # (AUTO) 0.1 10^3/uL (0.0-0.6); ABSOLUTE MONOCYTES (AUTO) 0.6 10^3/uL (0.1-1.4); ABSOLUTE NEUT (AUTO) 4.9 10^3/uL (1.7-8.2); BASOPHILS % (AUTO) 0.6 % (0-2); EOSINOPHILS % (AUTO) 1.3 % (0-6); HEMATOCRIT 44.4 % (36.0-47.0); HEMOGLOBIN 15.1 g/dL (12.0-15.5); LYMPHOCYTES % (AUTO) 26.2 % (13-45); MEAN CORPUSCULAR HEMOGLOBIN 30.8 pg (27.0-33.4); MEAN CORPUSCULAR HGB CONC 34.1 g/dL (32.0-36.0); MEAN CORPUSCULAR VOLUME 90 fl (80-97); MONOCYTES % (AUTO) 7.5 % (3-13); PLATELET COUNT 171 10^3/uL (150-450); RED BLOOD COUNT 4.92 10^6/uL (3.72-5.28); RED CELL DISTRIBUTION WIDTH 12.5 % (11.5-14.0); SEGMENTED NEUTROPHILS % (AUTO) 64.4 % (42-78); TOTAL CELLS COUNTED % (AUTO) 100 %; WHITE BLOOD COUNT 7.6 10^3/uL (4.0-10.5)
[2019-07-01 12:27] LABS: VENOUS BLOOD BASE EXCESS 2.8 mmol/L; VENOUS BLOOD HCO3 28.4 mmol/L (20-32); VENOUS BLOOD PCO2 46.7 mmHg (35-63); VENOUS BLOOD PH 7.4 (7.30-7.42)
--- NOTE | 2019-07-01 12:36 | ER Document Report ---
ED Blood Sugar Problem - General Chief Complaint: High Blood Sugar Stated Complaint: HYPERGLYCEMIA Time Seen by Provider: 07/01/19 10:39 Primary Care Provider: MARTY ARROYO MD [Primary Care Provider] - Follow up in 3-5 days Mode of Arrival: Ambulatory Notes: 63-year-old female presents with elevated blood sugars for the past 2 days. Patient states that they have been over 500 at home. Patient is a diabetic insulin-dependent. Patient also states she has a slight cough with a history of COPD and is still a smoker. Patient denies any fever, nausea/vomiting/diarrhea, urinary frequency, abdominal pain, chest pain, shortness of breath. Patient states she has never had DKA. Patient has never had to be admitted with an insulin drip. TRAVEL OUTSIDE OF THE [place] IN LAST 30 DAYS: No - Related Data Allergies/Adverse Reactions: No Known Allergies Allergy (Verified 04/05/19 08:58) Home Medications: Novolog am 10u. AC 5u (lunch and dinner). Tresiba 22u @ 10:30 Past Medical History - General Information source: Patient - Social History Smoking Status: Current Every Day Smoker Chew tobacco use (# tins/day): No Frequency of alcohol use: None Drug Abuse: Marijuana Family History: Arthritis, DM, Hyperlipidemia, Hypertension, Malignancy Patient has suicidal ideation: No Patient has homicidal ideation: No - Past Medical History Cardiac Medical History: Reports: Hx Coronary Artery Disease, Hx Hypercholesterolemia, Hx Hypertension Pulmonary Medical History: Reports: Hx Asthma, Hx Bronchitis, Hx COPD Endocrine Medical History: Reports: Hx Diabetes Mellitus Type 1, Hx Diabetes Mellitus Type 2 - insulin dep. Renal/ Medical History: Reports: Hx Ovarian Cysts. Denies: Hx Peritoneal Dialysis GI Medical History: Reports: Hx Colonoscopy - Polyps removed with the last colonoscopy Musculoskeletal Medical History: Reports Hx Musculoskeletal Deformity - Osteopenia, Reports Hx Musculoskeletal Trauma Psychiatric Medical History: Reports: Hx Depression Past Surgical History: Reports: Hx Cardiac Catheterization, Hx Cardiac Surgery - stent placed 2012, Hx Coronary Stent, Hx Gynecologic Surgery - ovary and cyst removal, Hx Orthopedic Surgery - right wrist-carpal tunnel, right knee - Immunizations Hx Diphtheria, Pertussis, Tetanus Vaccination: No Review of Systems - Review of Systems Notes: Constitutional: Negative for fever. HENT: Negative for sore throat. Eyes: Negative for visual changes. Cardiovascular: Negative for chest pain. Respiratory: Negative for shortness of breath. Gastrointestinal: Negative for abdominal pain, vomiting or diarrhea. Genitourinary: Negative for dysuria. Musculoskeletal: Negative for back pain. Skin: Negative for rash. Neurological: Negative for headaches, weakness or numbness. 10 point ROS negative except as marked above and in HPI. Physical Exam - Vital signs Vitals: Temp Pulse Resp BP Pulse Ox 98.6 F 83 16 138/70 H 96 07/01/19 09:13 07/01/19 09:13 07/01/19 09:13 07/01/19 09:13 07/01/19 09:13 - Notes Notes: GENERAL: Well-appearing, well-nourished and in no acute distress. HEAD: Atraumatic, normocephalic. EYES: Extraocular movements intact, sclera anicteric, conjunctiva are normal. NECK: Normal range of motion, supple without lymphadenopathy or JVD. LUNGS: Breath sounds clear to auscultation bilaterally and equal. No wheezes rales or rhonchi. HEART: Regular rate and rhythm without murmurs, rubs or gallops. ABDOMEN: Soft, mildly tender no guarding, no rebound. No masses appreciated. EXTREMITIES: Normal range of motion, no pitting or edema. No clubbing or cyanosis. NEUROLOGICAL: Cranial nerves II through XII grossly intact. Normal speech, normal gait. PSYCH: Normal mood, normal affect. SKIN: Warm, Dry, normal turgor, no rashes or lesions noted. Course - Re-evaluation Re-evalutation: 07/01/19 63-year-old nontoxic, well-appearing female presents with elevated blood sugars. Patient denies any fever, nausea/vomiting/diarrhea, urinary frequency, abdominal pain, chest pain, shortness of breath, anxiety. Patient's abdomen is soft mildly tender without guarding or rebound. Lungs clear to auscultation bilaterally. Regular rate and rhythm. PE is otherwise unremarkable. EKG was normal sinus rhythm at 65 bpm unchanged from her previous. No ST elevation. Patient's Accu-Chek here was 283. Her UA shows trace ketones with a small amount of blood with elevated glucose. CBC and CMP drawn. 07/01/19 16:32 Pt's labwork does not indicate DKA. Pt's blood sugar improved to 204. Pt given close follow up with PCP. Pt given return precautions. All questions/concerns addressed prior to discharge. - Vital Signs Vital signs: Temp Pulse Resp BP Pulse Ox 98.6 F 83 16 158/79 H 96 07/01/19 09:13 07/01/19 09:13 07/01/19 09:13 07/01/19 13:28 07/01/19 13:28 - Laboratory Result Diagrams: 07/01/19 12:05 07/01/19 12:05 Laboratory results interpreted by me: 07/01/19 07/01/19 07/01/19 11:05 11:40 12:05 Carbon Dioxide 31 H Glucose 254 H POC Glucose 283 H Urine Glucose (UA) >=500 H Urine Ketones TRACE H Urine Blood SMALL H 07/01/19 15:20 Carbon Dioxide Glucose POC Glucose 195 H Urine Glucose (UA) Urine Ketones Urine Blood Discharge - Discharge Clinical Impression: Hyperglycemia Condition: Stable Disposition: HOME, SELF-CARE Instructions: Hyperglycemia ([facility]) Additional Instructions: Your lab work today was reassuring. Your blood sugar came down with fluids and your home insulin. Please follow-up with your primary care doctor in 2 to 3 days for further work-up. Return to ER immediately if you start having any worsening symptoms, including nausea/vomiting abdominal pain, chest pain, shortness of breath, fever, urinary symptoms, or any other symptoms that are concerning to you. Referrals: MARTY ARROYO MD [Primary Care Provider] - Follow up in 3-5 days
[2019-07-01 12:44] LABS: ALBUMIN 4.3 g/dL (3.5-5.0); ALKALINE PHOSPHATASE 122 U/L (38-126); ANION GAP 7 (5-19); ASPARTATE AMINO TRANSFERASE 20 U/L (14-36); BILIRUBIN,DIRECT 0.2 mg/dL (0.0-0.4); BILIRUBIN,TOTAL 0.4 mg/dL (0.2-1.3); BLOOD UREA NITROGEN 17 mg/dL (7-20); CALCIUM 9.4 mg/dL (8.4-10.2); CARBON DIOXIDE 31 mmol/L (22-30); CHLORIDE 101 mmol/L (98-107); GLUCOSE 254 mg/dL (75-110); POTASSIUM 4.1 mmol/L (3.6-5.0)
[2019-07-01] MEDS ORDERED: NORMAL SALINE 1000 ML 1,000 ML IV ONE (13:27)
--- NOTE | 2019-07-01 16:22 | EKG REPORT ---
SEVERITY:- OTHERWISE NORMAL ECG - SINUS RHYTHM LEFT AXIS DEVIATION : Confirmed by: Nimo Montelongo MD 01-Jul-2019 16:21:32
[2019-07-01 16:52] VITALS: BP 175/71
== END 2019-07-01 16:43 | disposition home or self-care (01) ==
LOC: ER 08:45
DX: E11.9 Type 2 diabetes mellitus without complications (principal); Z79.84 Long term (current) use of oral hypoglycemic drugs; F17.200 Nicotine dependence, unspecified, uncomplicated; J44.9 Chronic obstructive pulmonary disease, unspecified; E78.00 Pure hypercholesterolemia, unspecified
CPT/HCPCS: 93005; 99284; 96360; 36415; 82962; 85025; 80053; 81001; 82803; 71046; 93010; J7030